=== PATIENT | male | born 1970 | race Caucasian/White ===

== ENCOUNTER 2018-08-05 08:09 | Inpatient (IN) | payer OTHER ==
[2018-08-05 08:39] VITALS: BMI 33.6
--- NOTE | 2018-08-05 09:55 | HP ---
CIWA Score Nausea/Vomitin-Int. Nausea w/Dry Heave Muscle Tremors: 4-Moderate,w/Arms Extend Anxiety: 4-Mod. Anxious/Guarded Agitation: 2 Paroxysmal Sweats: 3 Orientation: 0-Oriented Tacttile Disturbances: 0-None Auditory Disturbances: 1-Very Mild Visual Disturbances: 3-Moderate Sensitivity Headache: 2-Mild CIWA-Ar Total Score: 23 - Admission Criteria OASAS Guidelines: Admission for Medically Managed Detox: Requires at least one of the followin. CIWA greater than 12 2. Seizures within the past 24 hours 3. Delirium tremens within the past 24 hours 4. Hallucinations within the past 24 hours 5. Acute intervention needed for co occurring medical disorder 6. Acute intervention needed for co occurring psychiatric disorder 7. Severe withdrawal that cannot be handled at a lower level of care (continued vomiting, continued diarrhea, abnormal vital signs) requiring intravenous medication and/or fluids 8. Admission ROS [facility] Allergies/Adverse Reactions: Allergies Allergy/AdvReac Type Severity Reaction Status Date / Time diphenhydramine Allergy Mild Rash Verified 08/05/18 08:28 [From Benadryl] hydroxyzine [From Vistaril] Allergy Mild Rash Verified 08/05/18 08:28 History of Present Illness: pt here requesting detox from etoh use , reports first age of use 11 , currently 1/4 - 1 pint/day x 5 years , dailu use starts around 9 am , reports tremors of not drinking , current symptoms as above, + blackouts, denies seizures, reports hallucinations w/ detox while incarcerated " 1 or 2 years ago " , latest use yesterday 5 pm . Intermittent sober time up to 1 year w/ AA . cannabis : occasional tobacco : cigars PMHX : dm II , htn , hld , bipolar d/o , sad , left ankle frx Jan 2018 " wrestling with a friend drunk " , s/p ORIF [place] January 2018 , left ankle sprain , was in [facility] Apr 2018 , realsped on ETOH , went to detox x once [facility] in 2018 , currently using crutches for ambulation , latest ortho visit 2 months ago , using crutches since yesterday [facility] went 2/2 difficulty walking , XR done per pt states no frx , left knee pain PSHX : as above PSYch : as above , suicide attempt 5 years ago [place] , taken by police to [facility] , denies current SI / HI . SHx : homeless , finances habit through panhandling , denies current legal issues , has DL , had 5 DWI up to 1996 , none since . Exam Limitations: Clinical Condition - Ebola screening Have you traveled outside of the country in the last 21 days: No (N) Have you had contact with anyone from an Ebola affected area: No Do you have a fever: No - Review of Systems Constitutional: See HPI, Diaphoresis, Loss of Appetite EENT: reports: See HPI Respiratory: reports: No Symptoms reported Cardiac: reports: No Symptoms Reported GI: reports: See HPI, Diarrhea, Nausea, Poor Appetite : reports: No Symptoms Reported Musculoskeletal: reports: See HPI, Joint Pain, Joint Swelling, Joint Stiffness Integumentary: reports: Rash (LLE " sun burn ") Neuro: reports: See HPI, Headache, Pre-Existing Deficit, Tremors Endocrine: reports: See HPI Psychiatric: reports: Orientated x3, Agitated, Anxious Patient History - Smoking Cessation Smoking history: Current some day smoker Have you smoked in the past 12 months: Yes Hx Chewing Tobacco Use: No Initiated information on smoking cessation: No - Substances abused Alcohol Substance route: Oral Frequency: Daily Amount used: 2 QUART vODKA Age of first use: 11 Date of last use: 08/04/18 Family Disease History - Family Disease History Family Disease History: Diabetes: Father (A & W 73 , ETOH LATISHA , ), Other: Mother (htn , 71 ), Brother (A & W ) Other Family History: 5 children ages 4 thorugh 10 w/ bio mother does not keep in touch . Admission Physical Exam S - Vital Signs Vital Signs: Vital Signs - 24 hr 08/05/18 08:24 Temperature 97.1 F L Pulse Rate 86 Respiratory 18 Rate Blood Pressure 158/90 - Physical General Appearance: Yes: Disheveled, Moderate Distress, Tremorous, Sweating, Anxious HEENTM: Yes: EOMI, Hearing grossly Normal, Normocephalic, Normal Voice, Other ( upper and lower dentures) Respiratory: Yes: Chest Non-Tender, Lungs Clear, Normal Breath Sounds Neck: Yes: No masses,lesions,Nodules, Trachea in good position Cardiology: Yes: Regular Rhythm, Regular Rate, S1, S2, Tachycardia Abdominal: Yes: Non Tender, Soft, Protuberent Musculoskeletal: Yes: Joint Stiffness, Joint swelling (LLE) Extremities: Yes: Tremors, Pedal Edema, Swelling (left ankle sugical scar , decreased / minimal AROM), Erythema, Inflammation Neurological: Yes: Alert, Motor Strength 5/5 Integumentary: Yes: Warm, Erythema (guero LE), Rash (lle w/ superficial excoriation medial side lower 1/3) - Diagnostic (1) Alcohol abuse Current Visit: Yes Status: Acute (2) Cannabis abuse, episodic use Current Visit: Yes Status: Chronic (3) Cigar smoker unmotivated to quit Current Visit: Yes Status: Chronic Breathalyzer - Breathalyzer Breathalyzer: 0 Urine Drug Screen - Test Device Lot number: [id number] Expiration date: 05/01/20 - Control Is test valid?: Yes - Results Drug screen NEGATIVE: No Urine drug screen results: THC-Marijuana Inpatient Rehab Admission - Rehab Decision to Admit Inpatient rehab admission?: No
[2018-08-05] MEDS ORDERED: MENTHOL/PHENOL 1 EACH UD MM PRN (10:07)
[2018-08-05] MEDS ORDERED: MAGNESIUM HYDROX 2400MG/30ML ORAL SUSPENSION 30 ML CUP PO PRN (10:07)
[2018-08-05] MEDS ORDERED: MAGNESIUM CITRATE 300 ML BOTTLE PO PRN (10:07)
[2018-08-05] MEDS ORDERED: MAG HYDROX/AL HYDROX/SIMETH 30 ML UNIT-DOSE CUP PO PRN (10:07)
[2018-08-05] MEDS ORDERED: DICYCLOMINE HCL 10 MG CAPSULE PO PRN (10:07)
[2018-08-05] MEDS ORDERED: ACETAMINOPHEN 325 MG TABLET (FP) PO PRN ×2 (10:07)
[2018-08-05] MEDS ORDERED: BISMUTH SUBSALICYLATE 262 MG/15 ML BTL PO PRN (10:07)
[2018-08-05] MEDS: chlordiazePOXIDE HCL 25 MG CAPSULE PO SCH ×3 (11:12→22:29)
[2018-08-05] MEDS: BACITRACIN/POLYMYXIN B SULFATE 15 GM TUBE TP SCH ×2 (14:03→22:29)
[2018-08-05] MEDS: IBUPROFEN 400 MG TABLET (FP) PO PRN ×2 (16:31→22:31)
[2018-08-05] MEDS: metFORMIN HCL 500 MG TABLET (FP) PO SCH (17:07)
[2018-08-05] MEDS: INSULIN SLIDING SCALE (NOVOLOG) 1 VIAL SQ SCH (17:08)
--- NOTE | 2018-08-05 19:49 | CONSULT ---
[facility] Psychiatric Consult - Data Date of interview: 08/05/18 Admission source: [facility] Identifying data: THREE visits at bedside in the course of the day. Patient is found resting comfortably in bed. No evidence of distress. Psychiatrist will see patient at another time (when fully awake).
[2018-08-05] MEDS: ROSUVASTATIN CA 10 MG TABLET (FP) PO SCH (22:29)
[2018-08-05] MEDS: THIAMINE HCL 100 MG TABLET (FP) PO SCH (22:29)
[2018-08-05] MEDS: MELATONIN 5 MG TABLETS PO PRN (22:33)
[2018-08-06] MEDS: IBUPROFEN 400 MG TABLET (FP) PO PRN (05:33)
[2018-08-06] MEDS: chlordiazePOXIDE HCL 25 MG CAPSULE PO SCH ×4 (05:33→22:07)
[2018-08-06] MEDS: metFORMIN HCL 500 MG TABLET (FP) PO SCH ×2 (06:15→17:02)
[2018-08-06] MEDS: INSULIN SLIDING SCALE (NOVOLOG) 1 VIAL SQ SCH ×2 (06:29→17:03)
[2018-08-06] MEDS: BACITRACIN/POLYMYXIN B SULFATE 15 GM TUBE TP SCH ×2 (10:22→22:09)
[2018-08-06] MEDS: amLODIPine BESYLATE 10 MG TABLET (FP) PO SCH (10:22)
[2018-08-06] MEDS: PRENATAL VITAMINS W/ FOLIC ACID TABLET (FP) PO SCH (10:22)
[2018-08-06 12:49] LABS: ALBUMIN 3.4 g/dl (3.4-5.0); BILIRUBIN,TOTAL 0.4 mg/dL (0.2-1); CALCIUM 9.2 mg/dL (8.5-10.1); CREATININE 0.7 mg/dL (0.55-1.3); POTASSIUM 3.2 mmol/L (3.5-5.1); TOT PROT 6.2 g/dl (6.4-8.2)
[2018-08-06 12:52] LABS: HEMATOCRIT 40.3 % (35.4-49); HEMOGLOBIN 13.8 GM/dL (11.7-16.9); MCH 31.9 pg (25.7-33.7); MCHC 34.3 g/dl (32.0-35.9); MEAN PLT VOLUME 8.4 fl (7.5-11.1); PLATELET COUNT 126 K/MM3 (134-434); RBC 4.33 M/mm3 (4.00-5.60); RDW 15.3 % (11.9-15.9); WHITE BLOOD COUNT 3.7 K/mm3 (4.0-10.0)
[2018-08-06] MEDS: IBUPROFEN 600 MG TABLET (FP) PO PRN ×2 (13:13→22:07)
[2018-08-06] MEDS ORDERED: chlordiazePOXIDE HCL 10 MG CAPSULE PO PRN (13:26)
--- NOTE | 2018-08-06 14:38 | PN ---
[facility] CIWA - CIWA Score Nausea/Vomitin-Mild Nausea/No Vomiting Muscle Tremors: 4-Moderate,w/Arms Extend Anxiety: 4-Mod. Anxious/Guarded Agitation: 4-Moderately Restless Paroxysmal Sweats: 1-Minimal Palms Moist Orientation: 1-Uncertain about Date Tacttile Disturbances: 1-Very Mild Itch/Numbness Auditory Disturbances: 0-None Visual Disturbances: 0-None Headache: 1-Very Mild CIWA-Ar Total Score: 17 S Progress Note (SOAP) Subjective: ambulating with crutches due to left ankle chronic surgical 01/2018 infection and pain discuss alcohol misuse related avoidable injurious Objective: 08/06/18 14:35 Vital Signs Temperature 97.4 F L 08/06/18 13:26 Pulse Rate 75 08/06/18 13:26 Respiratory Rate 18 08/06/18 13:26 Blood Pressure 154/88 08/06/18 13:26 O2 Sat by Pulse Oximetry (%) Laboratory Last Values WBC 3.7 K/mm3 (4.0-10.0) L 08/06/18 08:50 RBC 4.33 M/mm3 (4.00-5.60) 08/06/18 08:50 Hgb 13.8 GM/dL (11.7-16.9) 08/06/18 08:50 Hct 40.3 % (35.4-49) 08/06/18 08:50 MCV 93.0 fl (80-96) 08/06/18 08:50 MCH 31.9 pg (25.7-33.7) 08/06/18 08:50 MCHC 34.3 g/dl (32.0-35.9) 08/06/18 08:50 RDW 15.3 % (11.9-15.9) 08/06/18 08:50 Plt Count 126 K/MM3 (134-434) L 08/06/18 08:50 MPV 8.4 fl (7.5-11.1) 08/06/18 08:50 Sodium 142 mmol/L (136-145) 08/06/18 08:50 Potassium 3.2 mmol/L (3.5-5.1) L 08/06/18 08:50 Chloride 105 mmol/L (98-107) 08/06/18 08:50 Carbon Dioxide 29 mmol/L (21-32) 08/06/18 08:50 Anion Gap 8 MMOL/L (8-16) 08/06/18 08:50 BUN 7 mg/dL (7-18) 08/06/18 08:50 Creatinine 0.7 mg/dL (0.55-1.3) 08/06/18 08:50 Est GFR (CKD-EPI)AfAm 129.34 08/06/18 08:50 Est GFR (CKD-EPI)NonAf 111.59 08/06/18 08:50 POC Glucometer 146 UNITS (80-120) 08/06/18 05:32 Random Glucose 173 mg/dL (74-106) H 08/06/18 08:50 Calcium 9.2 mg/dL (8.5-10.1) 08/06/18 08:50 Total Bilirubin 0.4 mg/dL (0.2-1) 08/06/18 08:50 AST 27 U/L (15-37) 08/06/18 08:50 ALT 36 U/L (13-61) 08/06/18 08:50 Alkaline Phosphatase 105 U/L (45-117) 08/06/18 08:50 Total Protein 6.2 g/dl (6.4-8.2) L 08/06/18 08:50 Albumin 3.4 g/dl (3.4-5.0) 08/06/18 08:50 lab noted low K+ K+ supplement Assessment: 08/06/18 14:37 alcohol withdrawal sx 08/06/18 14:37 low K+ Plan: continue detox repeat K+
[2018-08-06] MEDS: POTASSIUM CHLORIDE ORAL LIQUID 20 MEQ/15 ML PO SCH ×2 (15:44→18:10)
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
[2018-08-06] MEDS: ROSUVASTATIN CA 10 MG TABLET (FP) PO SCH (22:07)
[2018-08-06] MEDS: MIRTAZAPINE 15 MG TABLET (FP) PO SCH (22:07)
[2018-08-06] MEDS: THIAMINE HCL 100 MG TABLET (FP) PO SCH (22:07)
[2018-08-06] MEDS: OXcarbazepine 300 MG TABLET (UD) PO SCH (22:45)
[2018-08-07] MEDS: chlordiazePOXIDE HCL 25 MG CAPSULE PO SCH (05:10)
[2018-08-07] MEDS: INSULIN SLIDING SCALE (NOVOLOG) 1 VIAL SQ SCH ×2 (07:27→17:55)
[2018-08-07] MEDS: metFORMIN HCL 500 MG TABLET (FP) PO SCH ×2 (07:27→17:52)
[2018-08-07] MEDS: amLODIPine BESYLATE 10 MG TABLET (FP) PO SCH (10:14)
[2018-08-07] MEDS: BACITRACIN/POLYMYXIN B SULFATE 15 GM TUBE TP SCH ×2 (10:15→23:10)
[2018-08-07] MEDS: OXcarbazepine 300 MG TABLET (UD) PO SCH ×2 (10:15→23:24)
[2018-08-07] MEDS: SERTRALINE HCL 50 MG TABLET (FP) PO SCH (10:15)
[2018-08-07] MEDS: PRENATAL VITAMINS W/ FOLIC ACID TABLET (FP) PO SCH (10:15)
[2018-08-07] MEDS: IBUPROFEN 600 MG TABLET (FP) PO PRN ×2 (10:17→17:52)
[2018-08-07] MEDS: chlordiazePOXIDE HCL 10 MG CAPSULE PO SCH ×3 (12:54→23:10)
[2018-08-07] MEDS: ARIPiprazole 10 MG TABLET PO SCH ×2 (15:49→15:58)
--- NOTE | 2018-08-07 16:32 | PN ---
S CIWA - CIWA Score Nausea/Vomitin-No Nausea/No Vomiting Muscle Tremors: None Anxiety: 2 Agitation: 1-Slight > Activity Paroxysmal Sweats: No Perspiration Orientation: 0-Oriented Tacttile Disturbances: 1-Very Mild Itch/Numbness Auditory Disturbances: 0-None Visual Disturbances: 0-None Headache: 0-None Present CIWA-Ar Total Score: 4 BHS Progress Note (SOAP) Subjective: Anxious (Mild), Body Aches (Patient Reports History Of Previous Musculoskeletal Injury). Objective: PATIENT A & O X 3, OBSERVED AMBULATING ON UNIT WITH ASSISTANCE OF CRUTCHES. IN NO ACUTE DISTRESS. 08/07/18 16:29 Vital Signs Temperature 96.1 F L 08/07/18 14:09 Pulse Rate 73 08/07/18 14:09 Respiratory Rate 18 08/07/18 14:09 Blood Pressure 134/85 08/07/18 14:09 O2 Sat by Pulse Oximetry (%) Laboratory Tests 08/05/18 08/05/18 08/06/18 10:40 16:41 05:32 WBC RBC Hgb Hct MCV MCH MCHC RDW Plt Count MPV Sodium Potassium Chloride Carbon Dioxide Anion Gap BUN Creatinine Est GFR (CKD-EPI)AfAm Est GFR (CKD-EPI)NonAf POC Glucometer 123 128 146 Random Glucose Calcium Total Bilirubin AST ALT Alkaline Phosphatase Total Protein Albumin RPR Titer 08/06/18 08/06/18 08/06/18 08:50 08:50 08:50 WBC 3.7 L RBC 4.33 Hgb 13.8 Hct 40.3 MCV 93.0 MCH 31.9 MCHC 34.3 RDW 15.3 Plt Count 126 L MPV 8.4 Sodium 142 Potassium 3.2 L Chloride 105 Carbon Dioxide 29 Anion Gap 8 BUN 7 Creatinine 0.7 Est GFR (CKD-EPI)AfAm 129.34 Est GFR (CKD-EPI)NonAf 111.59 POC Glucometer Random Glucose 173 H Calcium 9.2 Total Bilirubin 0.4 AST 27 ALT 36 Alkaline Phosphatase 105 Total Protein 6.2 L Albumin 3.4 RPR Titer Nonreactive 08/06/18 08/07/18 08/07/18 16:33 05:09 07:30 WBC RBC Hgb Hct MCV MCH MCHC RDW Plt Count MPV Sodium Potassium 3.5 Chloride Carbon Dioxide Anion Gap BUN Creatinine Est GFR (CKD-EPI)AfAm Est GFR (CKD-EPI)NonAf POC Glucometer 190 171 Random Glucose Calcium Total Bilirubin AST ALT Alkaline Phosphatase Total Protein Albumin RPR Titer LABS NOTED. RESULT OF REPEAT K LEVEL NOTED. K LEVEL NOW NOTED TO BE WITHIN NORMAL RANGE. 08/07/18 16:30 Assessment: 08/07/18 16:30 WITHDRAWAL SYMPTOMS. LEUKOPENIA. THROMBOCYTOPENIA. Plan: CONTINUE DETOX. PATIENT REPORTS THAT HE IS TOLERATING CURRENT WITHDRAWAL / DETOX SYMPTOMS WELL. AT PATIENT'S REQUEST, CURRENT DETOX MEDICATION REGIMEN MODIFIED SO THAT PATIENT MAY BE DISCHARGED TOMORROW, 08/08/2018 HE HAS PERSONAL AFFAIRS THAT HE MUST ATTEND TO.
[2018-08-07] MEDS: MIRTAZAPINE 15 MG TABLET (FP) PO SCH (23:09)
[2018-08-07] MEDS: ROSUVASTATIN CA 10 MG TABLET (FP) PO SCH (23:10)
[2018-08-07] MEDS: MELATONIN 5 MG TABLETS PO PRN (23:11)
[2018-08-07] MEDS: THIAMINE HCL 100 MG TABLET (FP) PO SCH (23:11)
[2018-08-08] MEDS: chlordiazePOXIDE HCL 10 MG CAPSULE PO SCH (05:19)
[2018-08-08] MEDS: metFORMIN HCL 500 MG TABLET (FP) PO SCH (06:41)
[2018-08-08] MEDS: INSULIN SLIDING SCALE (NOVOLOG) 1 VIAL SQ SCH (06:42)
[2018-08-08 06:52] VITALS: BP 157/98
[2018-08-08] MEDS: IBUPROFEN 600 MG TABLET (FP) PO PRN (06:56)
[2018-08-08] MEDS ORDERED: amLODIPine BESYLATE 10 MG TABLET (FP) PO SCH (08:00)
[2018-08-08 09:23] VITALS: PULSE 78; TEMP 98.4
[2018-08-08] MEDS: PRENATAL VITAMINS W/ FOLIC ACID TABLET (FP) PO SCH (09:46)
[2018-08-08] MEDS: ARIPiprazole 10 MG TABLET PO SCH (09:46)
[2018-08-08] MEDS: OXcarbazepine 300 MG TABLET (UD) PO SCH (09:46)
[2018-08-08] MEDS: SERTRALINE HCL 50 MG TABLET (FP) PO SCH (09:46)
[2018-08-08] MEDS: BACITRACIN/POLYMYXIN B SULFATE 15 GM TUBE TP SCH (09:46)
[2018-08-08] MEDS ORDERED: chlordiazePOXIDE HCL 10 MG CAPSULE PO SCH (11:00)
--- NOTE | 2018-08-08 19:56 | DS ---
[facility] Detox Discharge Summary Admission Date: 08/05/18 Discharge Date: 08/08/18 - History Present History: Alcohol Dependence, Cannabis Dependence Additional Comments: PATIENT GOING TO [facility] ([place], [place]) FOR AFTERCARE. MEDICAID TRANSPORTATION ARRANGED FOR PATIENT TO ASSIST WITH TRANSPORT BACK HOME. PATIENT WAS DISCHARGED FROM DETOX UNIT IN STABLE MEDICAL CONDITION. Pertinent Past History: Type II DM, HTN, Hyperlipidemia, Bipolar Disorder, S.A.D., History of Left Ankle Fracture, S/P O.R.I.F. Procedure, History Of Left Ankle Sprain, Nicotine Dependence, Insomnia, Pain In Left Knee, Use Of Crutches as Ambulatory Aid. - Physical Exam Results Vital Signs: Vital Signs Temperature 98.4 F 08/08/18 09:22 Pulse Rate 78 08/08/18 09:22 Respiratory Rate 116 H 08/08/18 09:22 Blood Pressure 157/98 08/08/18 09:22 O2 Sat by Pulse Oximetry (%) Pertinent Admission Physical Exam Findings: WITHDRAWAL SYMPTOMS. Laboratory Tests 08/05/18 08/05/18 08/06/18 10:40 16:41 05:32 WBC RBC Hgb Hct MCV MCH MCHC RDW Plt Count MPV Sodium Potassium Chloride Carbon Dioxide Anion Gap BUN Creatinine Est GFR (CKD-EPI)AfAm Est GFR (CKD-EPI)NonAf POC Glucometer 123 128 146 Random Glucose Calcium Total Bilirubin AST ALT Alkaline Phosphatase Total Protein Albumin RPR Titer 08/06/18 08/06/18 08/06/18 08:50 08:50 08:50 WBC 3.7 L RBC 4.33 Hgb 13.8 Hct 40.3 MCV 93.0 MCH 31.9 MCHC 34.3 RDW 15.3 Plt Count 126 L MPV 8.4 Sodium 142 Potassium 3.2 L Chloride 105 Carbon Dioxide 29 Anion Gap 8 BUN 7 Creatinine 0.7 Est GFR (CKD-EPI)AfAm 129.34 Est GFR (CKD-EPI)NonAf 111.59 POC Glucometer Random Glucose 173 H Calcium 9.2 Total Bilirubin 0.4 AST 27 ALT 36 Alkaline Phosphatase 105 Total Protein 6.2 L Albumin 3.4 RPR Titer Nonreactive 08/06/18 08/07/18 08/07/18 16:33 05:09 07:30 WBC RBC Hgb Hct MCV MCH MCHC RDW Plt Count MPV Sodium Potassium 3.5 Chloride Carbon Dioxide Anion Gap BUN Creatinine Est GFR (CKD-EPI)AfAm Est GFR (CKD-EPI)NonAf POC Glucometer 190 171 Random Glucose Calcium Total Bilirubin AST ALT Alkaline Phosphatase Total Protein Albumin RPR Titer 08/07/18 08/08/18 16:36 05:17 WBC RBC Hgb Hct MCV MCH MCHC RDW Plt Count MPV Sodium Potassium Chloride Carbon Dioxide Anion Gap BUN Creatinine Est GFR (CKD-EPI)AfAm Est GFR (CKD-EPI)NonAf POC Glucometer 181 152 Random Glucose Calcium Total Bilirubin AST ALT Alkaline Phosphatase Total Protein Albumin RPR Titer LABS NOTED. - Treatment Hospital Course: Detox Protocol Followed, Detoxed Safely, Responded well, Discharged Condition Good Patient has Accepted a Rehab Referral to: PT. REFERRED TO [facility] ([place], [place]). - Medication Discharge Medications: Ambulatory Orders Amlodipine Besylate [Norvasc -] 10 mg PO DAILY 08/05/18 Aripiprazole [Abilify -] 10 mg PO DAILY 08/05/18 Loratadine 10 mg PO DAILY 08/05/18 Metoprolol Succinate [Toprol Xl -] 50 mg PO DAILY 08/05/18 Mirtazapine [Remeron -] 15 mg PO HS 08/05/18 Oxcarbazepine [Trileptal] 600 mg PO BID 08/05/18 Sertraline HCl [Zoloft -] 200 mg PO DAILY 08/05/18 metFORMIN HCL [Metformin HCl] 500 mg PO BID 08/05/18 Rosuvastatin Calcium [Crestor] 10 mg PO HS 14 Days #14 tablet 08/07/18 - Diagnosis (1) Alcohol abuse Status: Acute (2) Cannabis abuse, episodic use Status: Chronic (3) Cigar smoker unmotivated to quit Status: Chronic (4) Insomnia Status: Chronic Qualifiers: Insomnia type: unspecified Qualified Code(s): G47.00 - Insomnia, unspecified (5) Nicotine dependence Status: Chronic Qualifiers: Nicotine product type: cigarettes Substance use status: uncomplicated Qualified Code(s): F17.210 - Nicotine dependence, cigarettes, uncomplicated (6) Schizoaffective disorder Status: Chronic Qualifiers: Schizoaffective disorder type: unspecified Qualified Code(s): F25.9 - Schizoaffective disorder, unspecified (7) Alcohol dependence Status: Chronic Qualifiers: Substance use status: in withdrawal Complication of substance-induced condition: uncomplicated Qualified Code(s): F10.230 - Alcohol dependence with withdrawal, uncomplicated - AMA Did Patient Leave Against Medical Advice: No
== END 2018-08-08 09:40 | disposition home or self-care (01) | DRG 775 ==
LOC: YASAS 08:09 → Y3N 10:23
PROVIDERS: ADMIT Surgery; ATTEND Surgery
PROC: HZ2ZZZZ Detoxification Services for Substance Abuse Treatment (ICD-10-PCS; principal; 2018-08-05)
DX: F10.230 Alcohol dependence with withdrawal, uncomplicated (principal); F12.20 Cannabis dependence, uncomplicated; F17.210 Nicotine dependence, cigarettes, uncomplicated; F25.9 Schizoaffective disorder, unspecified; F17.290 Nicotine dependence, other tobacco product, uncomplicated; E87.6 Hypokalemia; D69.6 Thrombocytopenia, unspecified; D72.818 Other decreased white blood cell count; I10 Essential (primary) hypertension; E78.5 Hyperlipidemia, unspecified; E11.9 Type 2 diabetes mellitus without complications; Z79.84 Long term (current) use of oral hypoglycemic drugs; M25.562 Pain in left knee; G89.29 Other chronic pain; Z88.8 Allergy status to other drugs, medicaments and biological substances
CPT/HCPCS: 36415; 80053; 80183; 82962; 84132; 85027; 86593